=== PATIENT | male | born 1955 | race Caucasian/White ===

== ENCOUNTER 2017-04-21 15:01 | Emergency (ER) | payer BC ==
[~2017-04-21] VITALS: Ht 167.6 cm; Wt 75.0 kg
[~2017-04-21 15:01] MED LIST: BENZ100 PO; GUAI100S6 PO; MEDR4PAK3 PO
[2017-04-21 15:12] VITALS: BP 157/87; PULSE 89; RESP 16; TEMP 98.1; O2SAT 98
--- NOTE | 2017-04-21 15:24 | PD ---
HPI Chief Complaint: Pain: Acute or Chronic Time Seen by Provider: 15:23 Travel History International Travel<30 days: No Contact w/Intl Traveler<30days: No Traveled to known affect area: No History of Present Illness HPI 61-year-old male presents to emergency Department with complaint of swelling and pain to his right thenar eminence area 2 and half days. Denies injury. Denies history of gout. Reports history of arthritis. Denies paresthesias, loss of sensation to the affected extremity. Reports decreased range of motion of the thumb secondary to pain and swelling to the area. Denies fever, vomiting. Has not taken any medications to alleviate his symptoms. Says the area feels better when he thrown under hot water. Is requesting an MRI of the hand. 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 Allergies to sulfa. Has no other medical complaints. No other modifying factors or associated signs and symptoms. 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) Past Surgical History Other Surgery: Yes (VASECTOMY) Social History Alcohol Use: Yes (6 PACK A DAY) Tobacco Use: Yes (1 PPD) Substance Use: No Allergies-Medications (Allergen,Severity, Reaction): Coded Allergies: Sulfa (Verified Allergy, Mild, LEG PAIN, 03/03/15) Reported Meds & Prescriptions Reported Meds & Active Scripts Active Deltasone (Prednisone) 20 Mg Tab 40 Mg PO DAILY 5 Days Lortab (Hydrocodone-Acetaminophen) 5-325 Mg Tab 1-2 Tab PO Q6H PRN Robitussin Ac (Guaifenesin/Codeine Phosphate) Syrp 10 Ml PO Q6 PRN Medrol Dosepak (Methylprednisolone) 4 Mg Marquise 4 Mg PO DIRECTED TAKE DIRECTED Reported Tessalon Perles (Benzonatate) 100 Mg Cap 100 Mg PO TID Review of Systems Except as stated in HPI: all other systems reviewed are Neg Physical Exam Narrative GENERAL: Well-nourished, well-developed male patient, in no acute distress; afebrile, nontoxic-appearing SKIN: Warm and dry. HEAD: Atraumatic. Normocephalic. EYES: Pupils equal and round. No scleral icterus. No injection or drainage. ENT: Mucosa pink and moist. Airway patent. NECK: Trachea midline. CARDIOVASCULAR: Regular rate. RESPIRATORY: No accessory muscle use. GASTROINTESTINAL: Flat. MUSCULOSKELETAL: Right hand with tenderness on palpation to the thenar eminence area; with edema; without erythema or ecchymosis. Right thumb was decreased range of motion; no signs of septic joint. Right upper extremity is supple and non-tense with 2+ radial pulse and sensory intact. No obvious deformities. No clubbing. No cyanosis. NEUROLOGICAL: Awake and alert. Oriented 3. No obvious cranial nerve deficits. Motor grossly within normal limits. Normal speech. PSYCHIATRIC: Appropriate mood and affect; insight and judgment normal. Data Data Last Documented VS Vital Signs Date Time Temp Pulse Resp B/P Pulse Ox O2 Delivery O2 Flow Rate FiO2 04/21/17 15:12 98.1 89 16 157/87 98 Room Air Orders Hand, Complete ([id number]) (04/21/17 15:24) [facility] Medical Decision Making Medical Screen Exam Complete: Yes Emergency Medical Condition: Yes Medical Record Reviewed: Yes Differential Diagnosis Arthritis, gout, less likely septic joint Narrative Course 61-year-old male with pain and swelling to the right thenar eminence area of the right hand. Denies injury. Currently takes warfarin for history of DVT/ PE. I offered the patient a nonnarcotic for pain and he declined at this time. 1634: Left hand x-ray concludes: Last 24 hours Impressions Hand X-Ray 04/21/17 1524 Signed Impressions: Service Date/Time: Friday, April 21, 2017 15:39 - CONCLUSION: 1. Moderate to severe osteoarthritis involving the 1st carpal metacarpal joint with questionable mild subluxation of the 1st metacarpal. Clinical correlation is recommended. 2. Mild osteoarthritis involving the inner phalangeal joints of the left hand. 3. No acute fracture. MD Alejandro Basurto Deltasone prescribed for home. Instructed patient to follow up with hand specialist. Acosta bandage applied for support. Patient verbalizes understanding and agreement with treatment plan. Patient is medically cleared and stable for discharge. Discussed reasons to return to the emergency department. Instructed patient to follow up with primary care provider. Patient agrees with treatment plan. The patients vital signs are stable and the patient is stable for outpatient follow-up and treatment. Patient discharged home, stable and in no acute distress. Diagnosis Primary Impression: Osteoarthritis of first carpometacarpal joint of left hand Qualified Code: M18.12 - Osteoarthritis of carpometacarpal (CMC) joint of left thumb, unspecified osteoarthritis type Referrals: Leo Fabian MD [facility] Hand Surgeon Primary Care Physician Patient Instructions: General Instructions, Osteoarthritis (ED) Additional Instructions: Pain medication as prescribed Oral steroids as prescribed Follow-up with hand specialist Follow-up with primary care provider Return to the emergency department immediately with worsening of symptoms Med/Other Pt SpecificInfo: Prescription(s) given Scripts Prednisone (Deltasone)20 Mg Tab40 Mg PO DAILY 5 Days Ref 0 Prov:Genia Richards 04/21/17 Hydrocodone-Acetaminophen (Lortab)5-325 Mg Tab1-2 Tab PO Q6H PRN (PAIN) #20 TAB Ref 0 Prov:Bright Walker MD 04/21/17 Disposition: 01 DISCHARGE HOME Condition: Stable Genia Richards April 21, 2017 15:24
--- NOTE | 2017-04-21 16:15 | RADRPT ---
EXAM DATE/TIME: 04/21/2017 15:39 [facility] COMPARISON: No previous studies available for comparison. INDICATIONS : Left hand pain from unknown injury. MEDICAL HISTORY : None. SURGICAL HISTORY : None. ENCOUNTER: Initial ACUITY: 3 days PAIN SCORE: 8/10 LOCATION: Left lateral hand FINDINGS: Moderate to severe osteoarthritis is noted involving the left 1st carpal metacarpal joint. There is a questionable slight subluxation of the 1st metacarpal also. Clinical correlation is recommended. Mild osteoarthritis is noted involving the inner phalangeal joints of the left hand. There is no acu te fracture of the left hand. CONCLUSION: 1. Moderate to severe osteoarthritis involving the 1st carpal metacarpal joint with questionable mild subluxation of the 1st metacarpal. Clinical correlation is recommended. 2. Mild osteoarthritis involving the inner phalangeal joints of the left hand. 3. No acute fracture. Danny Sanchez MD on April 21, 2017 at 15:54 Board Certified Radiologist. This report was verified electronically.
[2017-04-21] MEDS ORDERED: HYDR-3533 PO (16:37)
[2017-04-21] MEDS ORDERED: PRED-503 PO (16:38)
== END 2017-04-21 16:53 | disposition home or self-care (01) ==
LOC: NEPK 15:01
DX: M18.12 Unilateral primary osteoarthritis of first carpometacarpal joint, left hand (principal); F17.210 Nicotine dependence, cigarettes, uncomplicated
CPT/HCPCS: 73130; 99284